=== PATIENT | male | born 1995 | race African-American/Black ===

== ENCOUNTER 2020-12-21 18:57 | Emergency (ER) | payer OTHER ==
[2020-12-21] MEDS ORDERED: TETANUS/DIPHTHERIA/PERTUSSIS 0.5 ML SYRINGE IM ONE (19:12)
[2020-12-21] MEDS ORDERED: BACITRACIN ZINC OINT 1 PACKET TOP STA (19:12)
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
[2020-12-21 19:37] VITALS: BP 164/101
== END 2020-12-21 19:41 | disposition home or self-care (01) ==
LOC: ED 18:57
DX: S81.812A Laceration without foreign body, left lower leg, initial encounter (principal); X99.1XXA Assault by knife, initial encounter; Z23 Encounter for immunization
CPT/HCPCS: 12001; 90471; 90715; 99282; 99283; A9270

== ENCOUNTER 2020-12-22 | Emergency (ER) | payer OTHER ==
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
== END 2020-12-22 01:04 | disposition home or self-care (01) ==
CPT/HCPCS: 99281; 99282

== ENCOUNTER 2020-12-23 | Emergency (ER) | payer SELFPAY ==
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
== END 2020-12-23 11:36 | disposition home or self-care (01) ==
CPT/HCPCS: 99281